=== PATIENT | male | born 1935 | race Caucasian/White ===

== ENCOUNTER 2017-12-23 08:46 | Outpatient (CLI) | payer MEDICARE, BC ==
--- NOTE | 2017-12-23 11:56 | CT ---
ABDOMEN AND PELVIC CT SCAN WITH AND WITHOUT IV CONTRAST: History: 82-year-old male with history of prostate CA status post radiation with rising PSA. FINDINGS: The lung bases appear clear. The liver, gallbladder, spleen, and adrenal glands are unremarkable. The stomach shows some wall thickening in the region of the fundus, probably related to under distension . The tail of the pancreas is very poorly defined and very thin and atrophic in appearance. At the le shubham of the body of the body of the pancreas just adjacent to the abnormally thin and atrophic tail po rtion of the pancreas on the portal venous phase imaging there is a poorly defined low attenuation fo cus measuring approximately 1.3 x 1.6 cm. This could possibly represent a mass/neoplasm. Additional i maging with a follow up MRI with and without IV contrast should be considered for further assessment of this region. Small periaortic lymph nodes are noted without evidence for overt adenopathy. There i s some prominent venous varices in the left upper quadrant in the perisplenic region. The kidneys dem onstrate no renal calculus or evidence for acute obstruction. There is a 1.7 cm diameter cyst invo lving the lower pole of the left kidney. There is some aneurysmal dilatation of the left internal ronald ac artery up to approximately 2.1 cm. There is a focal 1.6 cm diameter mass in the right pelvis at th e level of the rectum probably representing a large lymph node. No evidence for a definitive bone met astasis. IMPRESSION: 1.7 cm diameter enlarged lymph node in the right pelvis pararectal region, certainly concerning for a denopathy. Poorly defined somewhat nodular area of abnormal low attenuation change in the body of the pancreas, the tail of the pancreas is very atrophic and poorly defined. I am concerned that this low attenuation focus could represent a neoplastic mass. Consider follow up abdominal MRI with and witho ut IV contrast with pancreatic mass protocol for further assessment. Some dilated perisplenic and lef t upper quadrant veins, evidence for some varicosities. Small left renal cyst. 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 No evidence for bone metastasis. Other findings a s above. POS: [facility]
--- NOTE | 2017-12-23 13:53 | NM ---
BONE SCAN: HISTORY: An 82-year-old male with a history of malignant neoplasm of the prostate. Re-staging. Elevated PSA. TECHNIQUE: The patient was injected with 33 millicuries of technetium 99m MDP intravenously. Whole body and spo t images were performed. FINDINGS: There is evidence for bilateral renal and bladder activity. There are some heterogeneous areas of in creased activity involving the lumbar spine, particularly at L3-L4, as well as in the upper thoracic spine sternoclavicular regions and both shoulders. These are most consistent with arthrosis/degenera tive changes, without definitive evidence for acute metastasis. IMPRESSION: 1. Scattered areas of increased activity involving the lumbothoracic spine and both shoulders, havin g more the appearance of degenerative/arthrosis changes. 2. No definitively bone metastasis. POS: [facility]
[2017-12-23] MEDS ORDERED: Iopamidol 370 76% 100 ML VIAL ONE (14:07)
== END 2017-12-23 08:47 | disposition home or self-care (01) ==
LOC: NM 08:46
PROVIDERS: ATTEND Radiology Radiation Oncology
DX: C61 Malignant neoplasm of prostate (principal); R59.0 Localized enlarged lymph nodes; K86.89 Other specified diseases of pancreas; I83.92 Asymptomatic varicose veins of left lower extremity; N28.1 Cyst of kidney, acquired; I71.4 Abdominal aortic aneurysm, without rupture
CPT/HCPCS: 74178; 78306; 82565; A9503

== ENCOUNTER 2018-01-06 07:56 | Outpatient (CLI) | payer MEDICARE, BC ==
[2018-01-06] MEDS ORDERED: Gadobenate Dimeglumine 529 MG/1 ML (20ML VIAL) ONE (10:15)
--- NOTE | 2018-01-06 11:35 | MRI ---
MRI ABDOMEN WITH AND WITHOUT CONTRAST: HISTORY: Pancreatic mass. COMPARISON: CT abdomen and pelvis from 12/23/2017. TECHNIQUE: Multiplanar, multisequence MRI of the abdomen was performed prior to and after the intravenous admini stration of contrast. FINDINGS: There is atrophy of hepatic segments 2 and 3 with the left lobe of the liver medial to the falciform ligament. There is mild dilatation of the intrahepatic biliary system of hepatic segments 4A and 4B. At the pa ncreatic head/tail confluence, there is a 3.6 x 2.7 x 2.8 cm mass (trans x AP x CC). This is highly suggestive of malignancy. There is truncation of the pancreatic tail with no normal pancreatic tail after the mass. The pancreatic duct size is normal. The mass is separate from the superior mesenteric artery and melissa iac trunk. The liver is without evidence of metastatic disease. The spleen is unremarkable. Multiple nonenhanc ing small renal foci are present, suggesting cysts. There is narrowing of the celiac trunk due to th e diaphragmatic crura. No dilated loops of bowel in the upper abdomen. Within the L2 vertebral body , anteriorly, there is a focal area of round loss of normal marrow signal on the T1 weighted sequence , measuring 1.9 cm, with enhancement, concerning for osseous metastatic disease. IMPRESSION: 1. Primary pancreatic mass at the head/tail junction, size as above. The mass is separate from the superior mesenteric artery and celiac artery, although it does abut the splenic artery. There is, ho wever, a peripancreatic lymph node, measuring 1 x 1.6 cm just dorsal to the pancreatic head, on serie s 13 of image 52. 2. Concern for osseous metastatic disease in a single locus of the L2 vertebral body. POS: [facility]
== END 2018-01-06 07:57 | disposition home or self-care (01) ==
LOC: MRI 07:56
PROVIDERS: ATTEND Radiology Radiation Oncology
DX: K86.9 Disease of pancreas, unspecified (principal)
CPT/HCPCS: 74183; A9579

== ENCOUNTER 2018-09-16 08:16 | Outpatient (CLI) | payer MEDICARE, BC ==
--- NOTE | 2018-09-16 11:37 | MRI ---
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 Malignancy of pancreas, unspecified. Malignant neoplasm of prostate. COMPARISON: 01/06/2018. FINDINGS: No residual pancreatic mass is seen. The tail of the pancreas is again not visualized. No abnormal pancreatic ductal dilatation is seen. The 1 x 1.6 cm right peripancreatic lymph node is stable. The liver, spleen, adrenal glands, and gallbladder appear normal. There are cysts in the kidneys. T here is no free fluid. No aneurysmal dilatation of the abdominal aorta is seen. There are degenerat ronny changes in the spine. Focal enhancing lesion in the L2 vertebral body is stable. IMPRESSION: No definite evidence of residual pancreatic mass. The remainder of the exam is otherwise stable. This exam was interpreted in consultation with Dr. Errol Donnelly who concurs. POS: [facility]
== END 2018-09-16 08:17 | disposition home or self-care (01) ==
LOC: BICMRI 08:16
PROVIDERS: ATTEND Internal Medicine Hematology & Oncology
DX: D49.0 Neoplasm of unspecified behavior of digestive system (principal); C61 Malignant neoplasm of prostate; K86.9 Disease of pancreas, unspecified; Z98.890 Other specified postprocedural states
CPT/HCPCS: 74183; 82565

== ENCOUNTER 2019-01-19 10:22 | Outpatient (CLI) | payer MEDICARE, BC ==
--- NOTE | 2019-01-19 14:16 | NM ---
Exam: Total body bone scan: HISTORY: Malignant neoplasm of prostate COMPARISON: 12/23/2017 FINDINGS: Patient was injected with 32.4 mCi technetium 99m MDP intravenously. Whole body imaging was performed. Several new foci of abnormal increased activity including the left superior ileum and left inferior S I joint region as well as a fairly intense focal area of increased activity involving the upper lumbar probably L2 region. These 3 new foci were not present on the prior study and are certainly con cerning for metastasis. Stable area of minimal increased activity at the mid lumbar spine favored more likely to be degenerative change. Increased activity in both shoulder joints and sternoclavicula r regions also favored to be degenerative. Bilateral renal and bladder activity. IMPRESSION: At least 3 new foci of abnormal increased activity since the prior study involving the right pelvis a nd upper lumbar spine evidence for metastasis.
== END 2019-01-19 10:23 | disposition home or self-care (01) ==
LOC: NM 10:22
PROVIDERS: ATTEND Internal Medicine Hematology & Oncology
DX: C61 Malignant neoplasm of prostate (principal); C79.51 Secondary malignant neoplasm of bone
CPT/HCPCS: 78306; A9503

== ENCOUNTER 2019-08-15 10:33 | Outpatient (CLI) | payer MEDICARE, BC ==
--- NOTE | 2019-08-15 14:45 | NM ---
Radionucleotide bone scan HISTORY: Prostate cancer with osseous metastases. Restaging. COMPARISON: 01/19/2019. FINDINGS: Heterogeneously increased uptake at the shoulders with the appearance of degenerative jain es. Focal areas of abnormal uptake involves the apex of the left iliac crest and at the left sacroiliac j oint, favored to be within the lateral aspect of the mid sacral body. These and the abnormal uptake involving the left side of the L2 vertebral body are similar in appearance to the previous exam. Uptake at the sternoclavicular joints and upper sternum is stable and favored to be degenerative. Pubic symphysis mostly obscured by bladder uptake. IMPRESSION : Stable scintigraphic appearance of the suspected metastatic foci of the lumbar spine and pelvis.
== END 2019-08-15 10:34 | disposition home or self-care (01) ==
LOC: NM 10:33
PROVIDERS: ATTEND Internal Medicine Hematology & Oncology
DX: C61 Malignant neoplasm of prostate (principal); C79.51 Secondary malignant neoplasm of bone; R97.20 Elevated prostate specific antigen [PSA]
CPT/HCPCS: 78306; A9503

== ENCOUNTER 2019-10-19 08:05 | Outpatient (CLI) | payer MEDICARE, BC ==
--- NOTE | 2019-10-19 11:24 | CT ---
CT ABDOMEN AND PELVIS WITH IV CONTRAST: Date: 10/19/2019 Oral contrast was also administered. Multiplanar reconstruction. INDICATION: Prostate cancer. Follow-up prior study. There is also history of prior neuroendocrine tumor resection from the pancreas. Comparison made to CT abdomen and pelvis dated 12/23/2017. Correlation made to MRI abdomen dated 09/16/2018. FINDINGS: Lung bases clear. Liver and spleen are unremarkable. Pancreas appears unremarkable. There is evidence of pancreatic stevie l resection consistent with the history. The questioned low density in the body of the pancreas seen on prior CT is not apparent today. No pancreatic mass was identified on MRI exam of 09/16/2018. Adrenal glands normal. Kidneys show moderate left hydronephrosis and left hydroureter. The cyst involving the inferior pole of the left kidney is stable. The right kidney is unremarkable. There is a heterogeneous peripherally enhancing mass in the left pelvis which is a new finding when c ompared to prior studies. This mass measures 6.3 cm AP dimension x 5.0 cm width in the axial plane. T his mass is obstructing the distal left ureter producing the left hydronephrosis. Pathologic adenopat hy in the left pelvis would be assumed. This mass is producing mild mass effect on the urinary bladde r. The urinary bladder is mildly distended and is otherwise unremarkable. The enlarged lymph node seen in the perirectal region on the right on the prior study is not apparent today. There are other enlarged lymph nodes in the left iliac chain seen today. There is a homogeneously enh ancing mass consistent with enlarged lymph node measuring 2.0 cm seen posterolaterally to the left of the left common iliac artery just proximal to its bifurcation. There is another smaller lymph node m easuring approximately 1.0 cm just posterior to the left common iliac artery just beyond its origin. The large heterogeneous mass described above is located at the bifurcation of the iliac artery and di splaces both internal and external iliacs. The internal iliac artery aneurysm described previously is along the posterior margin of this mass an d is unchanged. The aorta is mildly ectatic, measuring up to 2.4 cm just proximal to the bifurcation. This is stable. The small bowel loops appear unremarkable. Colon is unremarkable. Review of the osseous structures again shows prominent degenerative disc changes in the lumbar spine with prominent spurring. There is a new circumscribed lucent area seen in the L2 vertebra along the superior end plate. There is surrounding sclerosis with internal lucency. This lesion measures approximately 2.0 cm. This is co ncerning for metastatic lesion given its appearance since 2018. There is also a new focal area of sclerosis with a lucent center seen in the left ilium along the inf erior margin of the left SI joint which measures 1.2 cm in the coronal plane. IMPRESSION: 1. New heterogeneously enhancing mass with central necrosis in the left pelvis along the iliac chain consistent with pathologic adenopathy measuring up to 6.0 cm as described above. This is obstructing the distal left ureter and producing moderate left hydronephrosis. 2. There is other left iliac chain adenopathy noted as described above, which is new from the prior study. 3. There are two new bone lesions identified, one in the L2 vertebra and the other in the left ilium , concerning for osseous metastasis. The ilial lesion is posteriorly located near the SI joint. 4. The left renal cyst is stable. 5. 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 POS: [facility]
== END 2019-10-19 08:06 | disposition home or self-care (01) ==
LOC: SCSCT 08:05
PROVIDERS: ATTEND Internal Medicine Hematology & Oncology
DX: C61 Malignant neoplasm of prostate (principal); C79.51 Secondary malignant neoplasm of bone; R19.00 Intra-abdominal and pelvic swelling, mass and lump, unspecified site; M87.9 Osteonecrosis, unspecified; R59.0 Localized enlarged lymph nodes; M89.9 Disorder of bone, unspecified; N28.1 Cyst of kidney, acquired; I72.3 Aneurysm of iliac artery
CPT/HCPCS: 74177

== ENCOUNTER 2019-10-31 08:40 | Day surgery (SDC) | payer MEDICARE, BC ==
[2019-10-28 13:29] VITALS: BMI 26.4
[2019-10-31 09:49] LABS: #Eosinphils 0.4 thou/uL (0.0-0.7); #Lymphocytes 1.2 thou/uL (1.20-3.40); #Monocytes 0.5 thou/uL (0.11-0.59); #Neutrophils 3.7 thou/uL (1.40-6.50); %Basophils 0.8 % (0.0-1.0); %Eosinophils 6.8 % (0.0-10.0); %Lymphocytes 20.1 % (21.0-51.0); %Neutrophils 64.4 % (42.0-75.0); Hemoglobin 12.3 g/dL (14.0-18.0); Mean Corpuscular HGB CONC 32.4 g/dL (32.0-36.0); Mean Corpuscular Hemoglobin 32.3 pg (27.0-31.0); Mean Corpuscular Volume 99.8 fL (78.0-98.0); Mean Platelet Volume 8.4 fL (7.4-10.4); Platelet Count 256 thou/uL (130-400); RBC Distribution Width 12.1 % (11.5-14.5); White Blood Cell (WBC) Count 5.8 thou/uL (4.8-10.8)
[2019-10-31 09:51] LABS: INR-International Normal Ratio 0.9; Prothrombin Time 12.4 sec (12.0-14.7)
[2019-10-31 10:02] VITALS: BP 176/94; TEMP 97.3
[2019-10-31] MEDS ORDERED: Fentanyl 100 MCG/2 ML VIAL SLOW IVP ONE (10:08)
[2019-10-31] MEDS ORDERED: Midazolam HCl 2 mg/2 ml Vial IVP ONE (10:09)
[2019-10-31] MEDS ORDERED: Sodium Bicarbonate 2.5 MEQ/5 ML VIAL IV ONE (10:09)
--- NOTE | 2019-10-31 11:41 | CT ---
Exam: CT guided biopsy HISTORY: Unknown primary. Left pelvic mass. COMPARISON: 10/19/2019 FINDINGS: Successful CT-guided biopsy. A total of 4 18-gauge core biopsy samples were obtained. Lesio nal tissue is present. TECHNIQUE: Consent obtained to perform a CT-guided biopsy. Patient was placed in the prone position o n the CT table. Patient's pelvis was evaluated. Lesion was identified. Skin was prepped and draped in a sterile fashion. 1% lidocaine, buffered with sodium bicarbonate was used for local anesthesia. U nder CT guidance, a 17-gauge metallic trocar was advanced into the pelvic mass. Through the trocar, total 4 18-gauge core biopsy samples were obtained. Lesional tissue is present. Patient tolerated the procedure well. No immediate or postprocedure complications. Hemostasis was achieved with manual pressure. Conscious sedation: 1 mg of Versed intravenously 50 mcg of fentanyl intravenously IMPRESSION: Successful CT-guided left pelvic mass biopsy.
== END 2019-10-31 12:00 | disposition home or self-care (01) ==
LOC: CT 08:40
PROVIDERS: ATTEND Internal Medicine Hematology & Oncology
PROC: 0JB83ZX Excision of Abdomen Subcutaneous Tissue and Fascia, Percutaneous Approach, Diagnostic (ICD-10-PCS; principal; 2019-10-31)
DX: C7B.8 Other secondary neuroendocrine tumors (principal); C61 Malignant neoplasm of prostate; Z79.82 Long term (current) use of aspirin; Z79.899 Other long term (current) drug therapy
CPT/HCPCS: 72192; 77012; 85025; 85610; 85730; 88305; 88333; 88341; 88342; J2250; J3010

== ENCOUNTER 2019-11-10 10:25 | Outpatient (CLI) | payer MEDICARE, BC ==
--- NOTE | 2019-11-10 12:35 | PET ---
Nuclear medicine FDG PET/CT: (Positron emission tomography and computed tomography) DATE: 11/10/2019 HISTORY: 84-year-old male with neuroendocrine tumor, initial staging, C7A.1. "Poorly differentiated carcinoma with neuroendocrine features, large pelvic mass. Evaluate for other metastatic disease." Initial staging. COMPARISON: none TECHNIQUE: IV injection of F-18 fluorodeoxyglucose (FDG) dose: 11.3 mCi. PET scan and attenuation correction CT performed from skull base to proximal thighs. FINDINGS: SUV (standard uptake values) numbers given are maximum SUVs. QCLR used. Diffusely increased uptake throughout the L2 vertebral body. SUV 9.0. Osseous lesion of left iliac wing, including iliac crest. SUV 5.2. The small focal osteoblastic lesion at head of left 10th rib is not hypermetabolic (SUV 1.3), consist ent with a quiescent prostate cancer metastasis. No abnormal foci of increased FDG uptake in the neck, abdominal cavity, or thoracic cavity. The large mass at the left anterior aspect of the pelvic cavity has SUV of 30.1. It obstructs the distal left ureter, causing moderate left hydroureteronephrosis. The 2 cm iliac chain lymph node abutting the posterior lateral surface of the left common iliac arter y bifurcation has SUV of 21.3. Directly superior to that, though 1 cm lymph node abutting the posterior surface of the left common i liac artery has SUV of 15.7. The midline lower retroperitoneal lymph node abutting the anterior surface of L5-S1 junction at the p elvic inlet, has SUV of 16.1. This is difficult to appreciate on the CT, but it is approximately 3 x 1.5 cm.. IMPRESSION: 1) large malignant tumor mass in the left side of the pelvic cavity. 2) it causes obstructive uropathy, causing moderate left hydroureteronephrosis. 3) there are at least 3 satellite malignant nodules, consistent with iliac chain lymph node metastase s.
== END 2019-11-10 10:26 | disposition home or self-care (01) ==
LOC: PET 10:25
PROVIDERS: ATTEND Internal Medicine Hematology & Oncology
DX: D3A.8 Other benign neuroendocrine tumors (principal); R19.09 Other intra-abdominal and pelvic swelling, mass and lump; N13.1 Hydronephrosis with ureteral stricture, not elsewhere classified
CPT/HCPCS: 78815; A9552

== ENCOUNTER 2019-11-23 07:01 | Outpatient (CLI) | payer MEDICARE, BC, OTHER ==
[2019-11-23 10:36] LABS: #Eosinphils 0.3 thou/uL (0.0-0.7); #Lymphocytes 1.3 thou/uL (1.20-3.40); #Monocytes 0.5 thou/uL (0.11-0.59); #Neutrophils 3.6 thou/uL (1.40-6.50); %Basophils 0.5 % (0.0-1.0); %Eosinophils 5.9 % (0.0-10.0); %Monocytes 7.9 % (0.0-10.0); %Neutrophils 62.8 % (42.0-75.0); Hemoglobin 12.4 g/dL (14.0-18.0); Mean Corpuscular HGB CONC 34.1 g/dL (32.0-36.0); Mean Corpuscular Hemoglobin 34.3 pg (27.0-31.0); Mean Platelet Volume 9.5 fL (7.4-10.4); Platelet Count 224 thou/uL (130-400); RBC Distribution Width 12.1 % (11.5-14.5); Red Blood Cell (RBC) Count 3.61 mill/uL (4.70-6.10); White Blood Cell (WBC) Count 5.7 thou/uL (4.8-10.8)
[2019-11-23 11:23] LABS: Anion Gap 14 mmol/L (10-20); BUN (Urea Nitrogen) 16 mg/dL (8.4-25.7); Calc. Creatinine Clearance 0 mL/min (70-130); Calcium 7.7 mg/dL (7.8-10.44); Carbon Dioxide 25 mmol/L (23-31); Chloride 99 mmol/L (98-107); Estimated GFR-MDRD 66; Glucose 169 mg/dL (83-110); Potassium 3.6 mmol/L (3.5-5.1); Sodium 134 mmol/L (136-145)
[2019-11-24 13:41] LABS: SARS-CoV-2 MS2 Positive; SARS-CoV-2 N Gene Negative; SARS-CoV-2 S Gene Negative; SARS-CoV-2 by NAA Not Detected (NotDetected); SARS-CoV-2 orf1ab Negative
== END 2019-11-23 07:02 | disposition home or self-care (01) ==
LOC: LABBT 07:01
PROVIDERS: ATTEND Specialist
DX: Z01.812 Encounter for preprocedural laboratory examination (principal); Z11.59 Encounter for screening for other viral diseases; C61 Malignant neoplasm of prostate
CPT/HCPCS: 80048; 85025; U0003; 87635

== ENCOUNTER → 2020-01-26 | Day surgery (SDC) | payer MEDICARE, BC ==
[~2020-01-26] MED LIST: Acetaminophen 500 MG TAB PO SCH; Sodium Chloride 0.9% 20 ML ONE; diphenhydrAMINE 25 MG CAP PO SCH
[2020-01-26 13:27] VITALS: BP 160/85; TEMP 98.1
[2020-01-26 13:44] LABS: #Eosinphils 0.1 thou/uL (0.0-0.7); #Lymphocytes 1.5 thou/uL (1.20-3.40); #Monocytes 0.6 thou/uL (0.11-0.59); #Neutrophils 4.7 thou/uL (1.40-6.50); %Basophils 0.5 % (0.0-1.0); %Eosinophils 1.5 % (0.0-10.0); %Lymphocytes 21.9 % (21.0-51.0); %Monocytes 8.5 % (0.0-10.0); %Neutrophils 67.6 % (42.0-75.0); Hemoglobin 9.1 g/dL (14.0-18.0); Mean Corpuscular HGB CONC 34.1 g/dL (32.0-36.0); Mean Corpuscular Hemoglobin 34.8 pg (27.0-31.0); Mean Platelet Volume 6.8 fL (7.4-10.4); Platelet Count 232 thou/uL (130-400); RBC Distribution Width 17.8 % (11.5-14.5)
== END ==
LOC: ONC/OP 08:11
PROVIDERS: ATTEND Internal Medicine Hematology & Oncology
PROC: 30233N1 Transfusion of Nonautologous Red Blood Cells into Peripheral Vein, Percutaneous Approach (ICD-10-PCS; principal; 2020-01-26)
DX: D64.9 Anemia, unspecified (principal); D69.6 Thrombocytopenia, unspecified
CPT/HCPCS: 36430; 85025; 86850; 86900; 86901; J1642; P9016; Q0163

== ENCOUNTER 2020-02-09 08:06 | Outpatient (CLI) | payer MEDICARE, BC ==
--- NOTE | 2020-02-09 10:17 | PET ---
EXAM: PET CT skull to mid thigh COMPARISON: 11/10/2019 HISTORY: Poorly differentiated neuroendocrine tumor TECHNIQUE: A PET/CT was performed from the skull to the mid thigh after administration of 13.0 millic uries of F-18 FDG. Evaluation was performed on a [employer] [place] workstation. FINDINGS: NECK: No areas of hypermetabolic activity CHEST: No areas of hypermetabolic activity ABDOMEN/PELVIS: The mass in the left aspect of the pelvis has decreased in size and now measures 4.6 cm in greatest dimension. This still demonstrates hypermetabolic activity with a max SUV value of 5.9. The previously seen enlarged and hypermetabolic left iliac and retroperitoneal lymph nodes are n o longer hypermetabolic. The largest lymph node now measures 1.2 cm in greatest dimension. There is a hypermetabolic 1.7 cm mass just posterior to the insular portion of the pancreas and adjacent to th e duodenum with max SUV value of 2.6. SKELETON: Hypermetabolic activity is seen within multiple vertebral bodies consistent with bony metas tases. The vertebral bodies are more hypermetabolic on today's examination compared to the prior examination. Sclerosis without hypermetabolic activity is seen in the left iliac bone. There is a sta ble area of sclerosis in the left posterior 10th rib without hypermetabolic activity. Hypermetabolic activity within the muscles surrounding the shoulders is likely secondary to movement during the examination. CT images used for attenuation correction show a right-sided Mediport with its tip in superior vena c aditi.. IMPRESSION: 1. Decreased size and hypermetabolic activity of the left pelvic mass and improvement in left iliac c jay jay adenopathy 2. Stable area of hypermetabolic activity along the posterior aspect of the pancreas and adjacent to the duodenum 3. Osseous metastatic disease which appears to demonstrate a mixed response.
== END 2020-02-09 08:07 | disposition home or self-care (01) ==
LOC: PET 08:06
PROVIDERS: ATTEND Internal Medicine Hematology & Oncology
DX: C7A.1 Malignant poorly differentiated neuroendocrine tumors (principal); C79.51 Secondary malignant neoplasm of bone; R19.09 Other intra-abdominal and pelvic swelling, mass and lump
CPT/HCPCS: 78815; A9552

== ENCOUNTER 2020-02-13 11:36 | Day surgery (SDC) | payer MEDICARE, BC ==
[2020-02-13] MEDS ORDERED: Sodium Chloride 0.9% 20 ML ONE (11:55)
[2020-02-13] MEDS ORDERED: diphenhydrAMINE 25 MG CAP PO SCH (12:00)
[2020-02-13] MEDS ORDERED: Acetaminophen 500 MG TAB PO SCH (12:00)
[2020-02-13 15:49] VITALS: BP 152/71; TEMP 97.8
[2020-02-13 15:50] LABS: #Eosinphils 0.1 thou/uL (0.0-0.7); #Lymphocytes 1.6 thou/uL (1.20-3.40); #Monocytes 0.6 thou/uL (0.11-0.59); %Basophils 0.2 % (0.0-1.0); %Eosinophils 0.8 % (0.0-10.0); %Lymphocytes 22.4 % (21.0-51.0); %Monocytes 8.1 % (0.0-10.0); %Neutrophils 68.6 % (42.0-75.0); Hemoglobin 8.3 g/dL (14.0-18.0); Hypochromia SLIGHT = 6-15 cells (100X) (0-5/hpf); MDiff Complete? YES; Mean Corpuscular HGB CONC 35.2 g/dL (32.0-36.0); Mean Corpuscular Hemoglobin 35.2 pg (27.0-31.0); Mean Corpuscular Volume 99.9 fL (78.0-98.0); Mean Platelet Volume 7.7 fL (7.4-10.4); Platelet Count 118 thou/uL (130-400); Platelet Morphology Comment Appears Decreased; Polychromasia MODERATE = 3-4 cells (100X) (0-2/hpf); RBC Distribution Width 16.3 % (11.5-14.5); Red Blood Cell (RBC) Count 2.35 mill/uL (4.70-6.10); Tear Drops SLIGHT = 2-5 cells (100X) (0-1/hpf); White Blood Cell (WBC) Count 7.4 thou/uL (4.8-10.8)
== END 2020-02-13 15:49 | disposition home or self-care (01) ==
LOC: ONC/OP 11:36
PROVIDERS: ATTEND Nurse Practitioner Acute Care
PROC: 30233N1 Transfusion of Nonautologous Red Blood Cells into Peripheral Vein, Percutaneous Approach (ICD-10-PCS; principal; 2020-02-13)
DX: D64.9 Anemia, unspecified (principal); D69.6 Thrombocytopenia, unspecified
CPT/HCPCS: 36430; 85025; 86850; 86900; 86901; J1642; P9016; Q0163

== ENCOUNTER 2020-05-03 08:14 | Outpatient (CLI) | payer MEDICARE, BC ==
--- NOTE | 2020-05-03 12:00 | PET ---
Radionucleotide PET scan with CT attenuation correction HISTORY: Malignant poorly differentiated neuroendocrine tumor with metastases. Restaging. COMPARISON: 02/09/2020. FINDINGS: The ill-defined soft tissue density mass within the left pelvis near the junction of the le ft iliac vessels is larger on the current study, measuring up to 5.8 cm x 5.7 cm greatest diameters. Max SUV 5.7 (previously 5.9). The 2.4 cm short axis diameter lymph node at the aortic bifurcation has enlarged since the prior stud y max SUV 14.4. Mild left hydroureteronephrosis to the level of the enlarging left pelvic mass is similar to the interval CT from [facility] 04/05/2020. A left common iliac lymph node short axis 1.4 cm shows max SUV 15.7. In the area of activity around the pancreatic head and duodenum on the prior study, no hypermetabolic activity is apparent on today's exam. Throughout the axial spine, there are innumerable foci of increased uptake. The areas of greatest abn ormalities involve C4; T2, 3, 4, 6, 8, 10 L1, 2. Most intense uptake is at the T8 level max SUV 8.8. Additional focal abnormalities of the skeleton are as follows: Right humeral neck max SUV 2.9 Sternum 3.6 Right third rib lateral 4.3 Right iliac bone 10.3 Right acetabulum 4.1 Right ischium 2.9 Left iliac bone 10.0 Proximal right femur 5.9. IMPRESSION : While the abnormalities in the upper retroperitoneum adjacent to the pancreatic tail and head have re solved, there has been overall significant worsening of disease with enlargement of the hypermetabolic pelvic adenopathy and widespread new sclerotic metastases.
== END 2020-05-03 08:15 | disposition home or self-care (01) ==
LOC: PET 08:14
PROVIDERS: ATTEND Internal Medicine Hematology & Oncology
DX: C7A.1 Malignant poorly differentiated neuroendocrine tumors (principal); C61 Malignant neoplasm of prostate; K86.9 Disease of pancreas, unspecified; C79.51 Secondary malignant neoplasm of bone; D50.0 Iron deficiency anemia secondary to blood loss (chronic); D53.9 Nutritional anemia, unspecified
CPT/HCPCS: 78815; A9552

== ENCOUNTER 2020-05-08 15:45 | Emergency (ER) | payer MEDICARE, BC ==
--- NOTE | 2020-05-08 17:05 | CT ---
CT Lower Ext Lt WO Con History: Pain Comparison: None. Findings: Bones: No acute fracture or malalignment. No erosions or periostitis. No significant left knee joint effusion. Mild chondrocalcinosis of both menisci. Muscles: Mild fatty atrophy medial head gastrocnemius and soleus muscles. Soft tissues: Although not completely evaluated, there is mild distention of the distal femoral popli teal vein. Moderate circumferential soft tissue swelling around the knee. No significant knee joint effusion. Impression: 1. No erosions or periostitis of the left knee. 2. No acute fracture or malalignment. 3. Mildly distended distal femoral vein and popliteal vein which can be seen with deep venous thrombo sis. Dedicated lower extremity ultrasound recommended.
--- NOTE | 2020-05-08 17:05 | CT ---
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 Axial, coronal, and sagittal r eformatted images were constructed from the raw data. FINDINGS: Visualized retroperitoneal and paravertebral soft tissues: There is persistent moderate left hydronep hrosis and hydroureter affecting the left renal collecting system that extends down to a large left pelvic mass. There is extensive bulky adenopathy within the lower abdomen and left iliac vasculature. There is a diffuse sclerosis involving the L2 vertebral body consistent with metastatic disease. There foci of sclerosis involving L1 vertebral body consistent with metastatic disease. There are foc i of osteoblastic metastatic disease involving the right sacrum and left ilium. No acute fracture is evident. Spinal alignment: There is straightening of the normal lumbar lordosis. Spinal instrumentation or postsurgical change: There is postsurgical change of a left hemilaminectomy at L5. At L5-S1, there is advanced disc degenerative disease with vacuum disc phenomenon at L5-S1. There is a broad-based disc osteophyte complex with loss of disc space height and facet joint degenerative change inducing severe bilateral osseous neural foramina narrowing. At L4-5, there is a broad-based disc osteophyte complex with facet hypertrophy inducing mild central canal narrowing and moderate left and severe right neural foraminal narrowing. At L3-4, there is a broad-based disc osteophyte complex with facet joint degenerative change inducing moderate to severe central canal narrowing and moderate to severe right and moderate left neural foraminal narrowing. At L2-3, there is a broad-based disc osteophyte complex inducing mild central canal narrowing and mil d bilateral neural foraminal narrowing. At L1-L2, there is a disc osteophyte complex with facet hypertrophy inducing mild central canal narro wing and moderate bilateral neural foraminal narrowing At T12-L1, there is a broad-based disc osteophyte complex with mild bilateral neural foraminal narrow ing. IMPRESSION: 1. 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 2. No acute fracture demonstrated. 3. Severe multilevel lumbar spondylosis with multilevel central canal or neural foraminal narrowing. 4. Persistent moderate left hydronephrosis and hydroureter extending down to a large left pelvic mass as seen on the comparison evaluations.
== END 2020-05-08 18:27 | disposition home or self-care (01) ==
LOC: ERS 15:45
DX: M25.562 Pain in left knee (principal); I82.412 Acute embolism and thrombosis of left femoral vein; I82.432 Acute embolism and thrombosis of left popliteal vein; Z79.899 Other long term (current) drug therapy; I10 Essential (primary) hypertension
CPT/HCPCS: 72131

== ENCOUNTER 2020-07-03 12:42 | Day surgery (SDC) | payer MEDICARE, BC ==
[2020-07-03] MEDS ORDERED: diphenhydrAMINE 25 MG CAP PO PRN (12:49)
[2020-07-03] MEDS ORDERED: Acetaminophen 500 MG TAB PO PRN (12:49)
[2020-07-03] MEDS ORDERED: Sodium Chloride 0.9% 20 ML ONE (13:01)
[2020-07-03 15:31] VITALS: BP 148/70; TEMP 97.5
== END 2020-07-03 15:50 | disposition home or self-care (01) ==
LOC: ONC/OP 12:42
PROVIDERS: ATTEND Internal Medicine Hematology & Oncology
PROC: 30233N1 Transfusion of Nonautologous Red Blood Cells into Peripheral Vein, Percutaneous Approach (ICD-10-PCS; principal; 2020-07-03)
DX: D64.9 Anemia, unspecified (principal)
CPT/HCPCS: 36430; 86850; 86900; 86901; J1642; P9016; Q0163

== ENCOUNTER 2020-07-11 09:46 | Outpatient (CLI) | payer MEDICARE, BC | END 2020-07-11 09:47 | disposition home or self-care (01) | LOC: ULT 09:46 | PROVIDERS: ATTEND Internal Medicine Hematology & Oncology | DX: M79.605 Pain in left leg (principal); R60.0 Localized edema; I82.412 Acute embolism and thrombosis of left femoral vein; I82.442 Acute embolism and thrombosis of left tibial vein ==

== ENCOUNTER 2020-09-24 07:43 | Outpatient (CLI) | payer MEDICARE, BC | END 2020-09-24 07:44 | disposition home or self-care (01) | LOC: PET 07:43 | PROVIDERS: ATTEND Internal Medicine Hematology & Oncology | DX: C7A.1 Malignant poorly differentiated neuroendocrine tumors (principal); C79.51 Secondary malignant neoplasm of bone | CPT/HCPCS: 78815; A9552 ==